=== PATIENT | male | born 1965 ===

== ENCOUNTER 2019-01-17 15:04 | Emergency (ER) | payer BC ==
[~2019-01-17] VITALS: Ht 170.2 cm; Wt 64.4 kg
--- NOTE | 2019-01-17 16:03 | NUR ---
Patient discharged to home in stable conditon. Written and verbal after care instructions given. Patient verbalizes understanding of instructions.PT ACCOMPANIED WITH THE PERSONNEL FROM THE PLACE HE RESIDES.
== END 2019-01-17 16:16 | disposition home or self-care (01) ==
LOC: ER 15:04
DX: K46.9 Unspecified abdominal hernia without obstruction or gangrene (principal); E78.5 Hyperlipidemia, unspecified
CPT/HCPCS: A4663